=== PATIENT | male | born 1930 ===

== ENCOUNTER 2016-12-06 09:04 | Outpatient (CLI) | payer MEDICARE, BC ==
[2016-12-06 12:29] LABS: #Basophils 0.1 thou/uL (0.0-0.2); #Eosinphils 0.1 thou/uL (0.0-0.7); #Lymphocytes 2.3 thou/uL (1.20-3.40); #Monocytes 0.8 thou/uL (0.11-0.59); #Neutrophils 4.9 thou/uL (1.40-6.50); %Eosinophils 0.8 % (0.0-10.0); %Lymphocytes 28.3 % (21.0-51.0); %Monocytes 9.5 % (0.0-10.0); Hematocrit 49.8 % (42.0-52.0); Mean Platelet Volume 7.1 fL (7.4-10.4)
[2016-12-06 12:38] LABS: Anion Gap 19 mmol/L (10-20); BUN (Urea Nitrogen) 10 mg/dL (8.4-25.7); Calc. Creatinine Clearance 0 mL/min (70-130); Calcium 8.9 mg/dL (7.8-10.44); Carbon Dioxide 23 mmol/L (23-31); Chloride 103 mmol/L (98-107); Estimated GFR-MDRD 86; LDL Cholesterol, Calculated 101 mg/dL
[2016-12-06 12:52] LABS: Hemoglobin A1c 5.1 % (4.0-6.0)
== END 2016-12-06 09:05 | disposition home or self-care (01) ==
LOC: NAVSJIPCSP 09:04
PROVIDERS: ATTEND Nurse Practitioner Family
DX: I48.91 Unspecified atrial fibrillation (principal); M62.838 Other muscle spasm; I10 Essential (primary) hypertension
CPT/HCPCS: 36415; 80048; 80061; 83036; 84443; 85025